=== PATIENT | male | born 1985 | race Caucasian/White ===

== ENCOUNTER → 2021-07-05 | Outpatient (CLI) | payer OTHER ==
[~2021-07-05] MED LIST: DAYPRO600 M1 PO; Fioricet 325 MG1 TAB PO; LEVOTHROID0.075 MG PO; PROPANOLOL PO; PROPRANOLOL HCL20 M1 PO; PYRIDIUM200 MG PO; ROBAXIN750 MG PO; VIBRAMYCIN100 MG PO; ZANTAC150 MG PO
== END | disposition home or self-care (01) ==
LOC: COVID19 15:29
PROVIDERS: ATTEND Internal Medicine
DX: Z11.52 Encounter for screening for COVID-19 (principal)

== ENCOUNTER → 2021-08-22 | Outpatient (CLI) | payer OTHER | END | disposition home or self-care (01) | LOC: COVID19 17:18 | PROVIDERS: ATTEND Student in an Organized Health Care Education/Training Program | DX: Z20.822 Contact with and (suspected) exposure to COVID-19 (principal) ==

== ENCOUNTER 2024-07-05 15:01 | Emergency (ER) | payer SELFPAY ==
[~2024-07-05] VITALS: Ht 170.1 cm; Wt 113.4 kg
[2024-07-05 15:40] LABS: BASO # 0.1 10*3/uL (0.0-0.1); BASO % 1.1 % (0.0-1.0); EOS # 0.4 10*3/uL (0.0-0.4); EOS % 6.4 % (1.0-4.0); HEMATOCRIT 45.9 % (42.0-52.0); MEAN CELL VOLUME 86.3 fl (80.0-94.0); MEAN CORPUSCULAR HGB 28.6 pg (27.0-31.0); MEAN CORPUSCULAR HGB CONC 33.1 g/dl (33.0-37.0); MONO # 0.8 10*3/uL (0.1-1.0); MONO % 14.2 % (3.0-9.0); NEUT # 3.3 10*3/uL (2.3-7.9); NEUT % 60.1 % (47.0-73.0); PLATELET COUNT AUTOMATED 220 10*3/uL (130-400); RED BLOOD COUNT 5.32 10*6/uL (4.50-5.90); WHITE BLOOD COUNT 5.4 10*3/uL (4.8-10.8)
[2024-07-05 15:58] LABS: ALKALINE PHOSPHATASE 193 U/L (46-116); BUN 12 mg/dl (9-23); CHLORIDE 103 mmol/L (98-107); LIPASE 33 U/L (12-53); POTASSIUM 4.1 mmol/L (3.4-5.1); SGPT/ALT 479 U/L (5-49); TOTAL PROTEIN 7.9 gm/dL (6.0-8.0)
[2024-07-05] MEDS ORDERED: SODIUM CHLORIDE 0.9% 1,000 ML IV ONE (17:35)
[2024-07-05] MEDS ORDERED: LIPITOR10 MG PO (22:18)
[2024-07-05] MEDS ORDERED: ZOLOFT100 MG PO (22:19)
[2024-07-05] MEDS ORDERED: ZOLOFT25 MG PO (22:19)
[2024-07-05] MEDS ORDERED: Ondansetron Hydrochloride 4 MG/2 ML VIAL IV PRN (22:55)
[2024-07-05] MEDS ORDERED: BISACODYL 10 MG SUPP R PRN (22:55)
[2024-07-05] MEDS ORDERED: TEMAZEPAM 15 MG CAP PO PRN (22:55)
[2024-07-05] MEDS ORDERED: Magnesium Hydroxide 30 ML UDC PO PRN (22:55)
[2024-07-05] MEDS ORDERED: BISACODYL 5 MG TAB PO PRN (22:55)
[2024-07-05] MEDS ORDERED: Dicyclomine Hydrochloride 20 MG TAB PO PRN (23:05)
[2024-07-05] MEDS ORDERED: METHOCARBAMOL 750 MG TAB PO PRN (23:05)
[2024-07-05] MEDS ORDERED: hydrOXYzine 50 MG CAP PO PRN (23:05)
[2024-07-05] MEDS ORDERED: LORazepam 2 MG/ML VIAL IV PRN (23:05)
[2024-07-05] MEDS ORDERED: MULTIVITAMIN IV SCH (23:10)
[2024-07-05] MEDS ORDERED: FOLIC ACID IV SCH (23:10)
[2024-07-05] MEDS ORDERED: SODIUM CHLORIDE 0.9% IV SCH (23:10)
[2024-07-05] MEDS ORDERED: Thiamine 200 MG/2 ML VIAL IV ONE (23:10)
[2024-07-06] MEDS ORDERED: Levothyroxine Sodium 75 MCG TAB PO SCH (06:00)
[2024-07-06] MEDS ORDERED: Ketorolac Tromethamine 15 MG/ML VIAL IV ONE (06:10)
[2024-07-06 06:35] LABS: ACT PARTIAL THROMBO TIME 27.6 SECONDS (20.0-32.1)
[2024-07-06 06:55] LABS: BASO % 0.7 % (0.0-1.0); EOS # 0.3 10*3/uL (0.0-0.4); EOS % 5.1 % (1.0-4.0); HEMATOCRIT 44.9 % (42.0-52.0); MEAN CELL VOLUME 85.9 fl (80.0-94.0); MEAN CORPUSCULAR HGB 28.7 pg (27.0-31.0); MEAN CORPUSCULAR HGB CONC 33.4 g/dl (33.0-37.0); MEAN PLATELET VOLUME 10.8 fl (9.6-12.3); MONO # 0.7 10*3/uL (0.1-1.0); MONO % 13.1 % (3.0-9.0); NEUT # 3.1 10*3/uL (2.3-7.9); NEUT % 56.8 % (47.0-73.0); PLATELET COUNT AUTOMATED 220 10*3/uL (130-400); RED BLOOD COUNT 5.23 10*6/uL (4.50-5.90); RED CELL DISTRI WIDTH 13.1 % (0-14.5); WHITE BLOOD COUNT 5.5 10*3/uL (4.8-10.8)
[2024-07-06 07:32] LABS: ALKALINE PHOSPHATASE 173 U/L (46-116); BUN 9 mg/dl (9-23); CHLORIDE 106 mmol/L (98-107); CHOLESTEROL 209 mg/dL (<200); FREE T4 1.42 ng/dl (0.89-1.76); LDL CHOLESTEROL 150 mg/dL (9-159); POTASSIUM 4.3 mmol/L (3.4-5.1); SGPT/ALT 438 U/L (5-49); TOTAL PROTEIN 7.8 gm/dL (6.0-8.0); TRIGLYCERIDES 192 mg/dl (<150)
[2024-07-06 07:57] LABS: VITAMIN D, 25-HYDROXY 15.2 ng/mL (30-100)
[2024-07-06] MEDS ORDERED: FOLIC ACID 50 MG/10 ML VIAL IV ONE (08:51)
[2024-07-06] MEDS ORDERED: SODIUM CHLORIDE 0.9% 500 ML BAG IV ONE (08:51)
[2024-07-06] MEDS ORDERED: MULTIVITAMIN CONCENTRATE (IV) 10 ML VIAL IV ONE (08:51)
[2024-07-06] MEDS ORDERED: Enoxaparin Sodium 40 MG/0.4 ML SYR SC SCH (10:00)
[2024-07-06] MEDS ORDERED: Propranolol Hydrochloride 20 MG TAB PO SCH (10:00)
[2024-07-06] MEDS ORDERED: Sertraline Hydrochloride 50 MG TAB PO SCH (10:00)
[2024-07-07 05:05] LABS: HBSAG Negative (Negative); HEP B CORE AB, IGM Negative (Negative); HEPATITIS C ANTIBODY Non Reactive (Non Reactive)
== END 2024-07-06 13:00 | disposition short-term general hospital (02) ==
LOC: ED 15:01
PROVIDERS: Physician Assistant Medical; Student in an Organized Health Care Education/Training Program
DX: E80.6 Other disorders of bilirubin metabolism (principal); R74.01 Elevation of levels of liver transaminase levels; R17 Unspecified jaundice; K82.4 Cholesterolosis of gallbladder; E66.9 Obesity, unspecified; I10 Essential (primary) hypertension; E78.2 Mixed hyperlipidemia; F41.1 Generalized anxiety disorder; E03.9 Hypothyroidism, unspecified; F10.10 Alcohol abuse, uncomplicated; Z88.1 Allergy status to other antibiotic agents; Z98.890 Other specified postprocedural states

== ENCOUNTER → 2024-12-07 | Outpatient (CLI) | payer BC ==
[~2024-12-07] MED LIST changes: +LIPITOR10 MG PO; +ZOLOFT100 MG PO; +ZOLOFT25 MG PO
== END | disposition home or self-care (01) ==
LOC: RAD 15:42
PROVIDERS: ATTEND Nurse Practitioner Family
DX: Z18.9 Retained foreign body fragments, unspecified material (principal)

== ENCOUNTER → 2025-05-24 | Outpatient (CLI) | payer BC | END | disposition home or self-care (01) | LOC: RAD 12:18 | PROVIDERS: ATTEND Nurse Practitioner Family | DX: M47.817 Spondylosis without myelopathy or radiculopathy, lumbosacral region (principal); M48.07 Spinal stenosis, lumbosacral region; M54.41 Lumbago with sciatica, right side ==